=== PATIENT | female | born 1965 | race Caucasian/White ===

== ENCOUNTER → 2018-01-20 | Outpatient (CLI) | payer OTHER ==
[~2018-01-20] MED LIST: GOLYTE PO; HYDR-653 PO; LEVO75TA68 PO; METR-1 PO; PER PO; PROM-110 PO; TAMS0.4C76 PO; VENL37.594 PO
--- NOTE | 2018-01-20 13:54 | RADIOLOGY IMAGING REPORT ---
FACILITY: [facility] PATIENT NAME: Jade Pompa : 1965 MR: [id number] V: [id number] EXAM DATE: ORDERING PHYSICIAN: REJI SIEGEL TECHNOLOGIST: Location: [facility] [place] Patient: Jade Pompa : 1965 Visit/Account:[id number] Date of Sevice: 01/20/2018 DEXA Scan Clinical history: screening. Comparison: None. LUMBAR SPINE: The bone mineral density (BMD) measured from L1-L4 correlates with a Z-score of -1.5 and a T-score of -2.5 which is osteopenic bordering on osteoporotic as defined by the World Health Organization. The corresponding risk of fracture in the lumbar spine is significantly increased compared with a young adult reference population. HIP: Bone mineral density (BMD) measured in the Left total hip region correlates with a Z-score of -1.3 and a T-score of -2.1. The T-score of the femoral neck is -2.4. The lower of the two T sco res is osteopenic bordering on osteoporotic which is defined as defined by the World Health Organiz ation. The corresponding risk of fracture in the hip is significantly increased compared with a tyrone g adult reference population. Bone mineral density (BMD) measured in the Left Femoral Neck region measures 0.710 g/cm?. Impression: 1. Lumbar spine: Osteopenic bordering on osteoporotic. 2. Left Total Hip: Osteopenic bordering on osteoporotic. The next DEXA scan of this patient should include the following sites: L1-L4 and Left hip. FRAX? WHO Fracture Risk Assessment Tool link: <http://www.shef.ac.uk/FRAX/tool.jsp?locationValue=9> PLEASE NOTE: 1) The World Health Organization defines low BMD as follows: T-score Normal > -1 Osteopenia < -1 and > -2.5 Osteoporosis < -2.5 without fractures Established osteoporosis < -2.5 with fractures 2) In general, you may wish to consider: Diagnosis Treatment Follow-up DEXA Normal BMD Prevention 2-3 years Osteopenia Prevention/therapy 1-2 years Osteoporosis Therapy Yearly 3) Fracture risk estimated from the T-score is more accurate for vertebral fractures (often spontane ous) than for hip fractures. Report Dictated By: Edinson Han MD at 01/20/2018 1:47 PM Report E-Signed By: Edinson Han MD at 01/20/2018 1:49 PM WSN:[email or web address]
--- NOTE | 2018-01-21 15:18 | RADIOLOGY IMAGING REPORT ---
FACILITY: [facility] PATIENT NAME: MARE ISABEL : [id number] MR: [id number] V: [id number] EXAM DATE: [id number] ORDERING PHYSICIAN: REJI SIEGEL TECHNOLOGIST: Patsy Webb PROCEDURE:BILATERAL DIGITAL SCREENING MAMMOGRAM WITH CAD ASSISTED INTERPRETATION & 3D TOMOSYNTHESIS COMPARISON:Prior mammograms from 02/21/2014, 11/29/2012, 11/24/2011. INDICATIONS:screening FINDINGS: The breast tissue is heterogeneously dense. This could obscure the detection of small masses. There are no mass lesions, architectural distortions, or any clustering's of suspicious microcalcifications. When compared to previous studies there has been no interval change. DIAGNOSTIC CATEGORY 1--NEGATIVE. RECOMMENDATIONS: ROUTINE MAMMOGRAM AND CLINICAL EVALUATION IN 1 YR. IMPRESSION: BIRADS 1: Negative. Dictated by: Jean Cui M.D. on 01/21/2018 at 12:42 Transcribed by: JOSE GUADALUPE on 01/21/2018 at 13:38 Approved by: Jean Cui M.D. on 01/21/2018 at 15:17 [facility]
== END ==
LOC: MAMO 01-04 00:43
PROVIDERS: ATTEND Nurse Practitioner Psychiatric/Mental Health
DX: Z13.820 Encounter for screening for osteoporosis (principal); Z12.31 Encounter for screening mammogram for malignant neoplasm of breast; M85.80 Other specified disorders of bone density and structure, unspecified site
CPT/HCPCS: 77063; 77067; 77080